=== PATIENT | female | born 1990 | race Caucasian/White ===

== ENCOUNTER 2016-07-04 19:16 | Emergency (ER) ==
--- NOTE | 2016-07-04 20:10 | PROVIDER DOCUMENTATION ---
HPI-Musculoskeletal Pain/Inj - GENERAL Chief Complaint: Extremity Pain Stated Complaint: RT ARM PAIN/SWOLLEN Time Seen by Provider: 07/04/16 19:58 Source: family - HX OF PRESENT ILLNESS-MUSKULOSKELTAL Nature of Presenting Problem: 25 y/o WF c/o RUE pain x 3 days. Pt states no trauma, injury to the area. Denies any numbness/tingling, but states feels "funny." Denies any other sxs at this time. States had LLE foot surgery x 1.5 weeks ago and is not on any blood thinner. Denies any SOB, CP. Review of Systems - Adult - REVIEW OF SYSTEMS - ADULT Constitutional: reports: no symptoms reported. denies: chills, fever Eyes: reports: no symptoms reported. denies: blurred vision, double vision Ears, Nose, Mouth & Throat: reports: no symptoms reported. denies: ear pain, nose pain Cardiovascular: reports: no symptoms reported. denies: chest pain, palpitations Respiratory: reports: no symptoms reported. denies: dyspnea on exertion, shortness of breath Gastrointestinal: reports: no symptoms reported. denies: abdominal pain, nausea , vomiting Genitourinary: reports: no symptoms reported. denies: dysuria, frequency Musculoskeletal: reports: see HPI, other. denies: joint pain, joint swelling Integumentary: reports: see HPI, other. denies: nail changes, rash Neurological: reports: no symptoms reported. denies: numbness, paresthesia Psychiatric: reports: no symptoms reported Endocrine: reports: no symptoms reported. denies: cold intolerance, heat intolerance Hematologic/Lymphatic: reports: no symptoms reported. denies: easy bruising, prolonged bleeding Allergic/Immunologic: reports: no symptoms reported All Other Systems: Reviewed and Negative Past History - Adult - PAST MEDICAL HISTORY-ADULT Review of Records: reports: Nursing Assessment Review, Medications Reviewed Major Childhood Illnesses: reports: denies history Cardiovascular: reports: denies history Respiratory: reports: denies history Gastrointestinal: reports: denies history Obstetrical/Gynecological: reports: endometriosis Genitourinary: reports: chronic UTI's Musculoskeletal: reports: chronic pain, other (plantar fascitis) Neurological: reports: headaches/migraines Psychiatric: reports: ptsd Endocrine/Immune: reports: denies history Other Conditions: reports: denies history - PRIOR SURGERIES/PROCEDURES Surgical/Procedure History: reports: reviewed, not pertinent - PRIOR HOSPITALIZATIONS Prior Hospitalizations: reports: none - IMMUNIZATION STATUS Childhood Immunizations: UTD Flu Vaccine: See Nurse Assessment - FAMILY HISTORY Family History: reviewed, not pertinent - SOCIAL HISTORY Smoking: cigarettes, less than 1 pack/day Provider spent 3-5 mins advising pt. on dangers of tobacco.: Discussed manners to quit use, and f/u contacts for add'l counseling. Physical Exam-Injury Related - Physical Exam-Injury Related Initial Vital Signs Reviewed: Yes General Appearance: alert, mild distress Eyes: pink conjunctivae Head, Ears, Nose, Mouth & Throat: normocephalic/atraumatic, moist mucous membranes Neck: supple, normal inspection Respiratory: lungs clear, normal breath sounds. negative: crackles, rales, rhonchi, stridor, wheezing Cardiovascular: normal peripheral pulses, regular rate, rhythm Peripheral Pulses: radial (R): 2+, radial (L): 2+ Back Exam: normal inspection Extremity: normal gait, normal capillary refill, swelling (RUE medial aspect and distal portion of humerus.), tenderness (same as swelling). negative: abnormal NV exam, deformity, pulse deficit Integumentary: normal color, warm/dry, blanching Neurologic: negative: aphasia, sensory deficit Psych/Mental Status: normal mood/affect, normal thought content, normal thought process, oriented x 3 Progress - PLAN OF CARE/RESULTS Progress/Plan/Lab Results: Laboratory Tests 07/04/16 07/04/16 07/04/16 20:44 20:44 20:44 WBC 14.55 H RBC 3.92 L Hgb 12.0 Hct 37.2 MCV 94.9 MCH 30.6 MCHC 32.3 L RDW Std Deviation 13.1 Plt Count 416 H MPV 10.0 Immature Gran % (Auto) 0.2 Neut % (Auto) 71.6 Lymph % (Auto) 19.8 L Real % (Auto) 6.5 Eos % (Auto) 1.6 Baso % (Auto) 0.3 Immature Gran # (Auto) 0.03 Neut # (Auto) 10.43 H Lymph # (Auto) 2.88 Real # (Auto) 0.94 H Eos # (Auto) 0.23 Baso # (Auto) 0.04 D-Dimer 0.36 Sodium 137 Potassium 4.3 Chloride 102 Carbon Dioxide 21 L Anion Gap 14 BUN 13 Creatinine 0.7 Estimated GFR/1.73 m2 > 60 BUN/Creatinine Ratio 19 Glucose 94 Calculated Osmolality 274 Calcium 8.8 Total Bilirubin 0.16 L AST 12 ALT 17 Alkaline Phosphatase 96 Total Protein 7.2 Albumin 3.7 Globulin 3.5 Albumin/Globulin Ratio 1.1 Orders Category Date Time Status ELBOW COMPLETE RIGHT [RAD] Stat Exams 07/04/16 20:24 Completed CBC WITH ELECTRONIC DIFF [HEME] Stat Lab 07/04/16 20:44 Completed CMP [COMPREHENSIVE METABOLIC PANEL] [CHEM] Stat Lab 07/04/16 20:44 Completed D-DIMER [CHEM] Stat Lab 07/04/16 20:44 Completed Clindamycin [Cleocin] Med 07/04/16 21:28 Discontinued 300 mg PO NOW ONE Hydrocodone/APAP 7.5 mg/325 mg [Carlton-7.5] Med 07/04/16 21:25 Discontinued 1 each PO NOW ONE Ondansetron Odt [Zofran Odt] Med 07/04/16 21:25 Discontinued 4 mg PO NOW ONE Vital Signs Temp Pulse Resp BP Pulse Ox 07/04/16 22:10 61 20 191/115 97 07/04/16 19:22 97.6 F 106 H 20 141/90 95 Penicillins Allergy (Unknown, Verified 07/04/16 21:20) Unknown tramadol Adverse Reaction (Intermediate, Verified 07/04/16 21:20) "GIVES ME MIGRAINES" Fluoxetine HCl [Prozac] 80 mg PO QAM 12/11/13 Clonazepam [Klonopin] 0.5 mg PO BID PRN PRN 10/29/14 Tizanidine HCl [Zanaflex] 4 mg PO TID 03/04/15 Clindamycin [Cleocin] 150 mg PO Q6HR #30 capsule 07/04/16 Diclofenac Sodium [Diclofenac Sodium ER] 100 mg PO DAILY #30 tab.er.24h Laboratory 07/04/16 07/04/16 07/04/16 20:44 20:44 20:44 WBC 14.55 H RBC 3.92 L Hgb 12.0 Hct 37.2 MCV 94.9 MCH 30.6 MCHC 32.3 L RDW Std Deviation 13.1 Plt Count 416 H MPV 10.0 Immature Gran % (Auto) 0.2 Neut % (Auto) 71.6 Lymph % (Auto) 19.8 L Real % (Auto) 6.5 Eos % (Auto) 1.6 Baso % (Auto) 0.3 Immature Gran # (Auto) 0.03 Neut # (Auto) 10.43 H Lymph # (Auto) 2.88 Real # (Auto) 0.94 H Eos # (Auto) 0.23 Baso # (Auto) 0.04 D-Dimer 0.36 Sodium 137 Potassium 4.3 Chloride 102 Carbon Dioxide 21 L Anion Gap 14 BUN 13 Creatinine 0.7 Estimated GFR/1.73 m2 > 60 BUN/Creatinine Ratio 19 Glucose 94 Calculated Osmolality 274 Calcium 8.8 Total Bilirubin 0.16 L AST 12 ALT 17 Alkaline Phosphatase 96 Total Protein 7.2 Albumin 3.7 Globulin 3.5 Albumin/Globulin Ratio 1.[address] Pathak; he agreed with d/c plan. Discussed results, medication use and f/u with pt. - XRAY 1 XRAY: Right XRAY Study: Elbow XRAY Interpretation: NAD Departure - Departure Time of Disposition Order: 21:25 DIAGNOSIS: Bursitis Cellulitis Qualifiers: Site of cellulitis: extremity Site of cellulitis of extremity: upper extremity Laterality: right Qualified Code(s): L03.113 - Cellulitis of right upper limb Disposition: HOME 01 Certified Medical Emergency: Emergent Condition: Stable Additional Instructions: Take medications as directed. Follow up with surgeon for recheck in 3-5 days. ED Follow Up Instructions: You have been treated by a care provider in the Emergency Department. These instructions are being provided to you so you can have an understanding of how to care for yourself upon discharge. Upon discharge from the Emergency Department, you are responsible for making arrangements for follow-up care by a physician of your choice. Take all prescribed medications as directed. Return to the Emergency Department immediately for any new or worsening symptoms. You may call the Physician Referral phone number at [phone] to obtain a list of Physicians who are taking new patients. Prescriptions: Clindamycin [Cleocin] 150 mg PO Q6HR #30 capsule Diclofenac Sodium [Diclofenac Sodium ER] 100 mg PO DAILY #30 tab.er.24h Referrals: Ronald Montez [Primary Care Provider] - Forms: Return to School/Parent Work Instructions: Bursitis, [id number], Cellulitis, [id number] Attestation - Physician/ FAVIOLA Attestation Patient care was provided by Advanced Practice Provider:: Yes Advanced Practice Provider:: Heather Michele Advanced Practice Provider documentation review:: The Mid-level provider documentation, treatment plan and medical decision making was reviewed by the physician who agrees with all treatment and medical decision making by the MLP.
[2016-07-04 20:50] LABS: MANUAL DIFF NEEDED? NO
[2016-07-04 20:56] LABS: BASO% 0.3 % (0.0-0.8); EOS# 0.23 X1000 (0.0-0.7); EOS% 1.6 % (0.0-10.0); HEMATOCRIT 37.2 % (37.0-47.0); IMM GRAN# 0.03 X1000 (0.0-0.04); IMM GRAN% 0.2 % (0.0-0.5); LYMPH# 2.88 X1000 (1.2-3.4); LYMPH% 19.8 % (20.5-51.1); MCH 30.6 PG (27-31); MCHC 32.3 g/dL (33-37); MCV 94.9 FL (81-99); MONO# 0.94 X1000 (0.11-0.59); MONO% 6.5 % (1.7-9.3); NEUT% 71.6 % (42.2-75.2); PLT 416 X1000 (130-400); RBC 3.92 XMIL (4.2-5.4)
[2016-07-04 21:11] LABS: AGAP 14; ALBUMIN 3.7 g/dL (3.5-5.0); ALKALINE PHOSPHATASE 96 U/L (32-104); BUN 13 mg/dL (8-22); CALCIUM 8.8 mg/dL (8.8-10.2); CHLORIDE 102 mmol/L (98-107); COSMO 274; GOT 12 U/L (10-30); GPT 17 U/L (10-36); POTASSIUM 4.3 mmol/L (3.5-5.1); SODIUM 137 mmol/L (136-145); TCO2 21 mmol/L (25-35); TOTAL BILIRUBIN 0.16 mg/dL (0.20-1.00); TOTAL PROTEIN 7.2 g/dL (6.3-8.3)
[2016-07-04] MEDS ORDERED: NORCO-7.5 PO ONE (21:25)
[2016-07-04] MEDS ORDERED: ZOFRAN ODT PO ONE (21:25)
[2016-07-04] MEDS ORDERED: CLEOCIN PO ONE (21:28)
[2016-07-04 22:11] VITALS: BP 191/115
--- NOTE | 2016-07-05 08:07 | Diag Imaging Result Document ---
PROCEDURE NAME: ELBOW COMPLETE RIGHT - 07/04/2016 RIGHT ELBOW, THREE VIEWS: FINDINGS: No fracture. No dislocation. Normal joint space. No other bony abnormality. IMPRESSION: Negative exam.
== END 2016-07-04 22:12 | disposition home or self-care (01) ==
LOC: ED 19:16
DX: M71.58 Other bursitis, not elsewhere classified, other site (principal); L03.113 Cellulitis of right upper limb; M79.601 Pain in right arm; G89.29 Other chronic pain; R51 Headache; F43.10 Post-traumatic stress disorder, unspecified; F17.210 Nicotine dependence, cigarettes, uncomplicated; Z71.6 Tobacco abuse counseling; Z79.899 Other long term (current) drug therapy
CPT/HCPCS: 80053; 85025; 85379